=== PATIENT | female | born 1990 | race Caucasian/White ===

== ENCOUNTER 2017-10-30 13:06 | Emergency (ER) | payer SELFPAY ==
[~2017-10-30] VITALS: Ht 162.6 cm; Wt 59.0 kg
[2017-10-30 13:08] VITALS: BP 131/61; PULSE 92; RESP 14; TEMP 99.2; O2SAT 98
--- NOTE | 2017-10-30 16:25 | PD ---
HPI Chief Complaint: Cold / Flu Symptoms Time Seen by Provider: 16:15 Travel History International Travel<30 days: No Contact w/Intl Traveler<30days: No Traveled to known affect area: No History of Present Illness HPI 27 year old female presents to the emergency department for evaluation of flulike symptoms that started 2 days ago. Patient with fever, headache, body aches, chest congestion, cough, sore throat. Patient with no chronic medical problems and takes no prescribed medications. She denies any chance of . Last menstrual period was 2 days ago. Patient states she vomited once this morning at 5 AM. No diarrhea or abdominal pain. No chest pain. No exacerbating or alleviating factors. Moderate severity. PFSH Past Medical History Medical History: Denies Significant Hx ?: Not LMP: 10/2017 Past Surgical History Surgical History: No Previous Surgery Social History Alcohol Use: No Tobacco Use: Yes (1/2 PACK A DAY ) Substance Use: No Allergies-Medications (Allergen,Severity, Reaction): Coded Allergies: No Known Allergies (Unverified , 10/30/17) Review of Systems Except as stated in HPI: all other systems reviewed are Neg Physical Exam Narrative GENERAL: Well-nourished, well-developed female patient, ambulatory. Afebrile. SKIN: Focused skin assessment warm/dry. HEAD: Normocephalic. Atraumatic. ENT: Mucosa pink and moist. No erythema or exudates. No uvular edema. No uvular , palatal, or tonsillar deviation. Airway patent. Nasal turbinates appear normal without nasal blood, purulent drainage or septal hematoma. Bilateral tympanic membranes are clear without erythema or perforation. EYES: No scleral icterus. No injection or drainage. NECK: Supple, trachea midline. No JVD or lymphadenopathy. CARDIOVASCULAR: Regular rate and rhythm without murmurs, gallops, or rubs. RESPIRATORY: Breath sounds equal bilaterally. No accessory muscle use. Lungs sounds are clear to auscultation. GASTROINTESTINAL: Abdomen soft, non-tender, nondistended. MUSCULOSKELETAL: No cyanosis, or edema. BACK: Nontender without obvious deformity. No CVA tenderness. Data Data Last Documented VS Vital Signs Date Time Temp Pulse Resp B/P (MAP) Pulse Ox O2 Delivery O2 Flow Rate FiO2 10/30/17 16:21 18 98 10/30/17 13:08 99.2 92 131/61 (84) Orders Orders Influenzae A/B Antigen (10/30/17 16:22) Group A Rapid Strep Screen (10/30/17 16:22) Ibuprofen (Motrin) (10/30/17 16:30) Ondansetron Odt (Zofran Odt) (10/30/17 16:30) Strep Culture (Group A) (10/30/17 16:25) MDM Medical Decision Making Medical Screen Exam Complete: Yes Emergency Medical Condition: Yes Medical Record Reviewed: Yes Differential Diagnosis Influenza versus viral syndrome versus URI versus strep pharyngitis Narrative Course 27-year-old female presents to the emergency department for evaluation of flulike symptoms for 2 days. Influenza and strep swabs are ordered and pending. Patient is given ibuprofen 600 mg by mouth, Zofran 4 mg ODT. Influenza is positive for influenza A. Strep is negative. Patient will be discharged with a prescription for Tamiflu, Zofran. She is encouraged to rest, Tylenol/ibuprofen [id number] follow up with a primary care physician. The patient was discharged in stable condition with instructions, including return instructions and follow up instructions. Diagnosis Primary Impression: Influenza A Referrals: Primary Care Physician call for appointment Patient Instructions: General Instructions, Influenza (ED) Departure Forms: Tests/Procedures, Work Release Enter return to work date: Nov 02, 2017 Additional Instructions: Take Tamiflu as directed. Take Zofran as instructed as needed for nausea/vomiting. Tylenol/Motrin [id number] as needed for body aches/fever. Drink plenty of fluids. Follow-up with your primary care physician. Return to the emergency department for any acute worsening of symptoms. Med/Other Pt SpecificInfo: Prescription(s) given Scripts Ondansetron Odt (Ondansetron Odt) 4 Mg Tab 4 MG SL Q6HR Y for Nausea/Vomiting, #12 TAB 0 Refills Prov: Monik Whiting 10/30/17 Oseltamivir (Tamiflu) 75 Mg Cap 75 MG PO BID for Mgmt Viral Infection for 5 Days, #10 CAP 0 Refills Prov: Monik Whiting 10/30/17 Disposition: 01 DISCHARGE HOME Condition: Stable Monik Whiting Oct 30, 2017 16:25
[2017-10-30] MEDS ORDERED: IBUPROFEN 600 MG TAB PO ONE (16:30)
[2017-10-30] MEDS ORDERED: ONDANSETRON ODT 4 MG TAB PO ONE (16:30)
[2017-10-30] MEDS ORDERED: OSEL75 PO (17:42)
[2017-10-30] MEDS ORDERED: ONDA4TAB7 SL (17:42)
== END 2017-10-30 20:18 | disposition home or self-care (01) ==
LOC: NEPD 13:06
DX: J10.1 Influenza due to other identified influenza virus with other respiratory manifestations (principal); F17.200 Nicotine dependence, unspecified, uncomplicated
CPT/HCPCS: 87081; 87804; 87880; 99284